=== PATIENT | female | born 1990 | race Caucasian/White ===

== ENCOUNTER 2020-12-17 08:53 | Emergency (ER) | payer MEDICAID ==
[~2020-12-17] VITALS: Ht 160 cm; Wt 61.2 kg
[2020-12-17] MEDS ORDERED: ASPIRIN500 MG PO (09:18)
== END 2020-12-17 11:02 | disposition home or self-care (01) ==
LOC: ED 08:53
DX: R10.9 Unspecified abdominal pain (principal); F10.20 Alcohol dependence, uncomplicated; Y90.8 Blood alcohol level of 240 mg/100 ml or more; Z79.82 Long term (current) use of aspirin
CPT/HCPCS: 80053; 81001; 83690; 84703; 85025; 96374; 96375; 99284-25; 99406; J1885; J2405; J3411; J7030

== ENCOUNTER 2021-01-03 10:27 | Emergency (ER) | payer MEDICAID ==
[~2021-01-03] VITALS: Ht 160 cm; Wt 61.2 kg
[~2021-01-03 10:27] MED LIST: ASPIRIN500 MG PO
--- OUTSIDE RECORDS SUMMARY | 2021-01-03 10:30 | XMS ---
PreManage Notification: CARINE OLSON [employer] Meat Events No recent Security Events currently on file CRITERIA MET - [facility] - 2 Visits in 30 Days CARE PROVIDERS There are no care providers on record at this time. Devon has no Care Guidelines for this patient. [facility]12 MO.) [facility] NOTE: Visits indicate total known visits. ED/C VISIT TRACKING (12 MO.) [facility]21 10[facility] COMPLAINT: - SUICIDAL 12/17/2020 08:54 [facility] TYPE: Emergency COMPLAINT: - ABD PAIN DIAGNOSES: - Unspecified abdominal pain - half-way (current) use of aspirin - Blood alcohol level of 240 mg/100 ml or more - Alcohol dependence, uncomplicated INPATIENT VISIT TRACKING (12 MO.) No inpatient visits to display in this time frame [email or web address]
== END 2021-01-03 14:35 | disposition home or self-care (01) ==
LOC: ED 10:27
DX: F10.229 Alcohol dependence with intoxication, unspecified (principal); R53.81 Other malaise; F17.200 Nicotine dependence, unspecified, uncomplicated; Y90.3 Blood alcohol level of 60-79 mg/100 ml
CPT/HCPCS: 80053; 80176; 81001; 84443; 84703; 85025; 96365; 96366; 99285-25; J3411; J7030